=== PATIENT | female | born 1940 | race Caucasian/White ===

== ENCOUNTER → 2022-05-03 | Day surgery (SDC) | payer OTHER, BC | END | disposition home or self-care (01) | LOC: JRADUS-SUR 08:40 | PROVIDERS: ATTEND Specialist | PROC: 0H9U3ZX Drainage of Left Breast, Percutaneous Approach, Diagnostic (ICD-10-PCS; principal; 2022-05-03) | DX: C50.912 Malignant neoplasm of unspecified site of left female breast (principal) | CPT/HCPCS: 19083; 77065-TC; 87899; 88305-TC; 88342-TC; A4648 ==

== ENCOUNTER 2023-12-16 17:35 | Emergency (ER) | payer OTHER, BC ==
[2023-12-16 18:31] VITALS: BP 134/77; PULSE 68; RESP 20; TEMP 98.7; BMI 22.3
[2023-12-16 18:48] LABS: INR 0.98 (0.83-1.09); PROTHROMBIN TIME (PATIENT) 11.2 SEC (9.7-13.0)
[2023-12-16 18:51] LABS: HEMOGLOBIN 14.5 G/dL (10.7-15.3); MCH 31.6 pg (25.7-33.7); MEAN CELL VOLUME 95.6 fl (80-96); MEAN PLT VOLUME 8.3 fl (7.5-11.1); PLATELET COUNT 236.5 10^3/uL (134-434); RDW 14.3 % (11.6-15.6); WHITE BLOOD COUNT 5.8 10^3/uL (4.0-10.8)
[2023-12-16 18:59] LABS: ALBUMIN 4.2 g/dl (3.4-5.0); ALK PHOS 117 U/L (45-117); ANION GAP 7 mmol/L (4-13); BILIRUBIN,TOTAL 0.7 mg/dl (0.2-1); CALCIUM 9.5 mg/dl (8.5-10.1); CHLORIDE 98 mmol/L (98-107); CO2 31 mmol/L (21-32); CREATININE 0.7 mg/dl (0.6-1.3); GLUCOSE,RANDOM 112 mg/dl (74-106); POTASSIUM 3.4 mmol/L (3.5-5.1); SGOT/AST 16 U/L (15-37); SGPT/ALT 10 U/L (7-52); SODIUM 136 mmol/L (136-145); TOT PROT 6.9 g/dl (6.4-8.2)
[2023-12-16 20:09] LABS: PLATELET ESTIMATE ADEQUATE
[2023-12-16] MEDS: MAGNESIUM SULF 50% (8.12 MEQ/2 ML-1 GM VIAL) IVPB ONE (20:15)
[2023-12-16] MEDS ORDERED: MAGNESIUM 1GM/D5W - 1 GM/100 ML IVPB IVPB ONE (20:15)
[2023-12-16] MEDS ORDERED: POTASSIUM CHLORIDE ORAL LIQUID 20 MEQ/15 ML ONE (20:15)
[2023-12-16] MEDS: POTASSIUM CHLORIDE ORAL LIQUID 20 MEQ/15 ML PO ONE (20:22)
== END 2023-12-16 20:52 | disposition home or self-care (01) ==
LOC: FER 17:35
PROC: 3E033GC Introduction of Other Therapeutic Substance into Peripheral Vein, Percutaneous Approach (ICD-10-PCS; principal; 2023-12-16)
DX: R22.2 Localized swelling, mass and lump, trunk (principal); R07.81 Pleurodynia
CPT/HCPCS: 36415; 71275-TC; 80053; 85027; 85610; 99284-25; Q9967

== ENCOUNTER 2024-01-15 17:39 | Emergency (ER) | payer OTHER, BC ==
[2024-01-15 17:53] VITALS: BP 147/62; PULSE 67; RESP 20; TEMP 98.6; BMI 24.9
[2024-01-15] MEDS ORDERED: DIPHTH,PERTUSS(ACELL),TET 0.5 ML DISP.SYRIN IM ONE (18:18)
[2024-01-15] MEDS: DIPHTH,PERTUSS(ACELL),TET 0.5 ML DISP.SYRIN IM ONE (18:27)
[2024-01-15] MEDS ORDERED: CEPHALEXIN MONOHYDRATE 500 MG CAPSULE (UD) ONE (19:03)
[2024-01-15] MEDS: CEPHALEXIN MONOHYDRATE 500 MG CAPSULE (UD) PO ONE (19:06)
== END 2024-01-15 19:07 | disposition home or self-care (01) ==
LOC: FER 17:39
PROC: 0YQQXZZ Repair Left 1st Toe, External Approach (ICD-10-PCS; principal; 2024-01-15)
PROC: 3E0234Z Introduction of Serum, Toxoid and Vaccine into Muscle, Percutaneous Approach (ICD-10-PCS; 2024-01-15)
DX: S91.112A Laceration without foreign body of left great toe without damage to nail, initial encounter (principal); W27.2XXA Contact with scissors, initial encounter; Z23 Encounter for immunization
CPT/HCPCS: 10060; 90471; 90715; 99284-25

== ENCOUNTER 2024-02-05 12:00 | Emergency (ER) | payer OTHER, BC ==
[2024-02-05 12:11] VITALS: BP 118/59; PULSE 62; RESP 18; TEMP 98.2; BMI 21.4
== END 2024-02-05 12:45 | disposition home or self-care (01) ==
LOC: FER 12:00
DX: Z48.02 Encounter for removal of sutures (principal)
CPT/HCPCS: 99281-25